=== PATIENT | female | born 1965 | race Caucasian/White ===

== ENCOUNTER 2021-07-08 13:26 | Emergency (ER) | payer OTHER ==
[2021-07-08 16:16] LABS: Absolute Lymphocytes (CBC) 2.4 K/uL (0.7-4.9); Hematocrit 39.7 % (36.0-45.0); Lymphocytes % 23.1 % (15.3-44.8); MPV 7.4 fL (7.6-11.3); RBC Red Blood Cell Count 4.29 M/uL (3.86-4.86)
[2021-07-08 16:17] LABS: Protime INR 1.09
[2021-07-08 16:49] LABS: Albumin 3.7 g/dL (3.4-5.0); Bilirubin Direct 0.2 mg/dL (0-0.2); Bilirubin Total 0.5 mg/dL (0.2-1.0); Magnesium 2.2 mg/dL (1.8-2.4); Potassium 3.6 mmol/L (3.5-5.1); Protein, Total 8.2 g/dL (6.4-8.2)
--- NOTE | 2021-07-08 17:08 | RAD REPORT ---
EXAM DESCRIPTION: CT - Head Brain Wo Cont - 07/08/2021 4:55 pm CLINICAL HISTORY: ams, slurred speech COMPARISON: CT-STROKE BRAIN W/O CONTRAST dated 11/15/2013; Chest Single View dated 07/08/2021 TECHNIQUE: Axial 5 mm thick images of the head were obtained without IV contrast. All CT scans are performed using dose optimization technique as appropriate and may include automated exposure control or mA/KV adjustment according to patient size. FINDINGS: No intracranial hemorrhage, mass, edema or shift of mid-line structures. Volume loss prese nt. These are mild left greater than expected in a patient this age. Ventricles are in proportion. Ap proximately 2.5 cm wedge-shaped area diminished attenuation is present in the right parietal lobe inv olving cortical tissue. There is a larger 5 centimeter more heterogeneous area diminished attenuation at the left frontal parietal junction. Areas of cortical thinning are present. Both areas are probab ly old infarctions. Areas of acute nonhemorrhagic infarction along the boundaries of these areas of t his anemic insult cannot be excluded. The brainstem, thalamus and basal ganglia tissues appear spared any significant attenuation abnormality. No abnormal extra-axial fluid collections. Mastoid air cells and visualized portions of the paranasal sinuses are clear. No acute bony findings. IMPRESSION: No intracranial hemorrhage is present no mass or edema seen. Areas of diminished attenuation in the left frontoparietal lobe and right parietal lobe are probably old areas of ischemic insult. Adjacent areas of acute nonhemorrhagic CVA cannot be excluded. Follow-up MRI imaging would be suggested if tolerable by the patient for more sensitive assessment of possible nonhemorrhagic CVA.
--- NOTE | 2021-07-08 17:40 | RAD REPORT ---
EXAM DESCRIPTION: RAD - Chest Single View - 07/08/2021 4:59 pm CLINICAL HISTORY: CHEST PAIN COMPARISON: None available TECHNIQUE: AP portable chest image was obtained 07/08/2021 4:59 pm . FINDINGS: Lungs are clear. Heart and vasculature are normal. No measurable pleural effusion and no p neumothorax. No acute bony abnormality seen. No acute aortic findings suspected. IMPRESSION: No acute cardiopulmonary process.
--- NOTE | 2021-07-08 17:59 | RAD REPORT ---
EXAM DESCRIPTION: MRI - Brain Wo Cont - 07/08/2021 5:46 pm CLINICAL HISTORY: SLURRED SPEECH, abnormal CT head COMPARISON: Head Brain Wo Cont dated 07/08/2021 TECHNIQUE: Sagittal T1-weighted images were obtained along with axial PD, heavily T2-weighted and T2 -FLAIR images. Axial DWI and ADC mapping sequences were also obtained along with coronal heavily T2-w eighted images. FINDINGS: No intracranial hemorrhage, mass or acute infarction. There is no edema or shift of midlin e structures. Areas of ischemic insult in the right parietal lobe and left frontoparietal region seen on the CT study are fully chronic based on the MRI characteristics. Patient has additional chronic i schemic change scattered in the cerebral white matter. Thalamus, basal ganglia and brainstem tissues are spared any chronic ischemic change. Atrophy changes are generally mild. Ventricles are in proport ion to the volume loss. Prieto-matter/white matter junction is preserved. Signal voids are seen as a no rmal finding in the major intracranial vessels. No sella or supra sella abnormality. No globe or orbital content acute finding. Mastoid air cells and paranasal sinuses are clear. IMPRESSION: No acute infarction changes are present. The areas of ischemic insult in the right parietal lobe and left frontoparietal lobe on the CT study are all chronic.
--- NOTE | 2021-07-08 18:59 | ER ---
Nurse's Notes [facility] Name: Rupali Caballero Age: 55 yrs Sex: Female : 1965 Arrival Date: 07/08/2021 Time: 13:27 Bed 6 Private MD: Diagnosis: Person with feared health complaint in whom no diagnosis is made Presentation: 07/08 13:41 Chief complaint: Patient states: "I think I had a stroke on Monday." Pt states on ab2 Monday she was weak and she was having trouble talking. Pt states she could not get her bra on. Pt states some of the symptoms have since resolved. Coronavirus screen: Vaccine status: Patient reports receiving the 2nd dose of the covid vaccine. Client denies travel out of the [place] in the last 14 days. At this time, the client does not indicate any symptoms associated with coronavirus-19. Ebola Screen: Patient negative for fever greater than or equal to 101.5 degrees Fahrenheit, and additional compatible Ebola Virus Disease symptoms Patient denies exposure to infectious person. Patient denies travel to an Ebola-affected area in the 21 days before illness onset. No symptoms or risks identified at this time. Initial Sepsis Screen: Does the patient meet any 2 criteria? No. Patient's initial sepsis screen is negative. Does the patient have a suspected source of infection? No. Patient's initial sepsis screen is negative. Risk Assessment: Do you want to hurt yourself or someone else? Patient reports no desire to harm self or others. Onset of symptoms is unknown. 13:41 Method Of Arrival: Ambulatory ab2 13:41 Acuity: AME 3 ab2 Triage Assessment: 13:46 The onset of the patients symptoms was July 05, 2021 at 09:00. General: Appears in no ab2 apparent distress. comfortable, Behavior is calm, cooperative, appropriate for age. Pain: Complains of pain in back. Neuro: Level of Consciousness is awake, alert, obeys commands, Oriented to person, place, time, situation, Appropriate for age Reports weakness. Cardiovascular: No deficits noted. Denies chest pain, shortness of breath, Patient's skin is warm and dry. Respiratory: Airway is patent Respiratory effort is even, unlabored, Respiratory pattern is regular, symmetrical. GI: No deficits noted. No signs and/or symptoms were reported involving the gastrointestinal system. Abdomen is round non-distended. : No deficits noted. No signs and/or symptoms were reported regarding the genitourinary system. 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 - Social history:: Smoking status: Patient reports the use of cigarette tobacco products, smokes one-half pack cigarettes per day. Screenin:06 Abuse screen: Denies threats or abuse. Nutritional screening: No deficits noted. ap3 Tuberculosis screening: No symptoms or risk factors identified. Fall Risk Fall in past 12 months (25 points). Secondary diagnosis (15 points) impaired mobility, CVA, IV access (20 points). Ambulatory Aid- Crutches/Cane/Walker (15 pts). Gait- Weak (10 pts.). Mental Status- Oriented to own ability (0 pts). Total [place] Fall Scale indicates High Risk Score (45 or more points). Fall prevention measures have been instituted. Side Rails Up X 2 Placed Close to Nursing Station Frequent Obs/Assessments Occuring As available patient and family educated on Fall Prevention Program and Strategies. Assessment: 16:04 General: Appears in no apparent distress. Behavior is cooperative, anxious. Pain: ap3 Complains of pain in back, right leg, right hip. Neuro: Level of Consciousness is awake, alert, obeys commands, Oriented to person, place, time, Speech is slurred, slurred speech is patients baseline with hx of stroke . Cardiovascular: Patient's skin is warm and dry. Respiratory: Airway is patent Respiratory effort is even, unlabored, Respiratory pattern is regular, symmetrical. 18:13 Reassessment: pt is sitting up in bed, eating chips. respirations are even and ap3 unlabored at this time. Bed is locked and in lowest position, with call light within reach. 18:55 Reassessment: Pt appears agitated, yelling at staff, states "I'm ready to go smoke." jl7 ERP notified and to bedside, informed pt of results of MRI and pt verbalized understanding. Requested IV to be remove so she can leave. IV removed, pt ambulated out of ER with walker. Vital Signs: 13:41 BP 131 / 88; Pulse 95; Resp 20; Temp 97.7(TE); Pulse Ox 97% on R/A; Weight 75.3 kg; ab2 Height 5 ft. 1 in. (154.94 cm); Pain 7/10; 18:10 BP 100 / 68; Pulse 87; Pulse Ox 98% on R/A; ap3 13:41 Body Mass Index 31.37 (75.30 kg, 154.94 cm) ab2 ED Course: 13:27 Patient arrived in ED. am2 13:46 Triage completed. ab2 13:47 Arm band placed on right wrist. ab2 15:28 Micki Astudillo, ULYSSES is Primary Nurse. 7 15:33 Sundar South PA is PHCP. [facility] 15:33 Lukas Lombardi MD is Attending Physician. [facility] 16:07 Patient has correct armband on for positive identification. Bed in low position. Call ap3 light in reach. Side rails up X 1. Pulse ox on. NIBP on. Door closed. Noise minimized. 16:56 CT Head Brain wo Cont In Process Unspecified. EDMS 17:01 XRAY Chest (1 view) In Process Unspecified. EDMS 17:46 Brain Wo Cont MRI In Process Unspecified. EDMS 18:55 No provider procedures requiring assistance completed. IV discontinued, intact, jl7 bleeding controlled, No redness/swelling at site. Pressure dressing applied. Administered Medications: No medications were administered Outcome: 18:59 Discharge ordered by . sudheer 19:00 Discharged to home ambulatory. jl7 19:00 Condition: stable 19:00 Discharge instructions given to patient, Instructed on discharge instructions, follow up and referral plans. Demonstrated understanding of instructions, follow-up care, left without signing form 19:22 Patient left the ED. [email or web address] Signatures: Dispatcher [employer] EDSundar Winter PA PA Micki Meyer, RN RN jl7 Kiana Nazario am2 Kiana Lamb, RN RN ap3 Oscar Bonilla2
--- NOTE | 2021-07-08 18:59 | EDPHYS ---
Physician Documentation [facility] Name: Rupali Caballero Age: 55 yrs Sex: Female : 1965 Arrival Date: 07/08/2021 Time: 13:27 Bed 6 Private MD: ED Physician Lukas Lombardi HPI: 07/08 15:35 This 55 yrs old Female presents to ER via Ambulatory with complaints of Slurred Speech, jmm Back Pain. 15:35 This is a 55-year-old female with history of prior CVAs the presents emerged department jmm with complaints of right-sided weakness and difficulty with her speech beginning this past Monday. Patient states that she believes she had a stroke. Patient noticed this while attempting to put on her bra. Patient states that she has had ongoing right-sided weakness secondary to previous stroke. Believes that symptoms may have been exacerbated after she smoked some type of unknown substance this past weekend with a friend of hers. Patient states that her previous stroke she did have cocaine in her system.. 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 - Social history:: Smoking status: Patient reports the use of cigarette tobacco products, smokes one-half pack cigarettes per day. ROS: 15:35 Constitutional: Negative for fever, chills, and weight loss, Cardiovascular: Negative jmm for chest pain, palpitations, and edema, Respiratory: Negative for shortness of breath, cough, wheezing, and pleuritic chest pain. 15:35 Neuro: Positive for speech changes, weakness. 15:35 All other systems are negative. Exam: 15:35 Constitutional: This is a well developed, well nourished patient who is awake, alert, jmm and in no acute distress. Head/Face: atraumatic. Eyes: EOMI, no conjunctival erythema appreciated ENT: Moist Mucus Membranes Neck: Trachea midline, Supple Chest/axilla: Normal chest wall appearance and motion. Cardiovascular: Regular rate and rhythm. No edema appreciated Respiratory: Normal respirations, no respiratory distress appreciated Abdomen/GI: Non distended, soft Back: Normal ROM Skin: General appearance color normal 15:35 Musculoskeletal/extremity: ROM: intact in all extremities. 15:35 Skin: Appearance: Color: normal in color. 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 15:35 Psych: Behavior/mood is pleasant, cooperative. Vital Signs: 13:41 BP 131 / 88; Pulse 95; Resp 20; Temp 97.7(TE); Pulse Ox 97% on R/A; Weight 75.3 kg; ab2 Height 5 ft. 1 in. (154.94 cm); Pain 7/10; 18:10 BP 100 / 68; Pulse 87; Pulse Ox 98% on R/A; ap3 13:41 Body Mass Index 31.37 (75.30 kg, 154.94 cm) ab2 MDM: 15:56 Patient medically screened. [facility] 18:58 Data reviewed: vital signs, nurses notes. Counseling: I had a detailed discussion with sudheer the patient and/or guardian regarding: the historical points, exam findings, and any diagnostic results supporting the discharge/admit diagnosis, lab results, radiology results, the need for outpatient follow up, to return to the emergency department if symptoms worsen or persist or if there are any questions or concerns that arise at home. 07/08 15:34 Order name: Basic Metabolic Panel; Complete Time: 19:16 [facility] 07/08 15:34 Order name: CBC with Diff; Complete Time: 16:23 [facility] 07/08 15:34 Order name: LFT's; Complete Time: 19:16 [facility] 07/08 15:34 Order name: Magnesium; Complete Time: 19:16 [facility] 07/08 15:34 Order name: NT PRO-BNP; Complete Time: 19:16 [facility] 07/08 15:34 Order name: PT-INR; Complete Time: 16:23 [facility] 07/08 15:34 Order name: Troponin HS; Complete Time: 19:16 [facility] 07/08 15:34 Order name: XRAY Chest (1 view); Complete Time: 17:47 [facility] 07/08 15:34 Order name: EKG; Complete Time: 15:35 [facility] 07/08 15:34 Order name: Cardiac monitoring; Complete Time: 16:03 [facility] 07/08 15:34 Order name: EKG - Nurse/Tech; Complete Time: 16:03 [facility] 07/08 16:23 Order name: CT Head Brain wo Cont; Complete Time: 17:37 [facility] 07/08 16:23 Order name: Brain Wo Cont MRI; Complete Time: 18:02 [facility] 07/08 15:34 Order name: IV Saline Lock; Complete Time: 16:03 [facility] 07/08 15:34 Order name: Labs collected and sent; Complete Time: 16:04 [facility] 07/08 15:34 Order name: O2 Per Protocol; Complete Time: 16:04 [facility] 07/08 15:34 Order name: O2 Sat Monitoring; Complete Time: 16:04 [facility] Administered Medications: No medications were administered Disposition: 19:17 Co-signature as Attending Physician, Lukas Lombardi MD I agree with the assessment and kdr plan of care. Disposition Summary: 07/08/21 18:59 Discharge Ordered Location: Home [facility] Condition: Stable [facility] Diagnosis - Person with feared health complaint in whom no diagnosis is made [facility] Followup: [facility] - With: Private Physician - When: 2 - 3 days - Reason: Recheck today's complaints, Continuance of care, Re-evaluation by your physician Forms: - Medication Reconciliation Form [facility] - Thank You Letter [facility] - Antibiotic Education [facility] - Prescription Opioid Use [facility] Signatures: Dispatcher [employer] Lukas Rose MD MD kdr Mickail, Joel, PA PA jmm Bleininger, Alexis ab2
[2021-07-08 19:12] LABS: Troponin High Sensitivity 4.3 pg/mL (<58.9)
[2021-07-08 22:43] VITALS: TEMP 97.7
[2021-07-08 22:44] VITALS: BP 100/68; O2SAT 98
--- NOTE | 2021-07-09 07:47 | EKG ---
Test Date: 2021-07-08 Test Time: 15:56:52 Flap Maker: ALP MEASUREMENT RESULTS: Intervals: Rate: 82 IN: 124 QRSD: 82 QT: 370 QTc: 432 [place]: P: 71 IN: 124 QRS: 53 T: 53 INTERPRETIVE STATEMENTS: Normal sinus rhythm Low voltage QRS Borderline ECG Compared to ECG 11/15/2013 19:32:16 Low QRS voltage now present Myocardial infarct finding no longer present Electronically Signed On 07-09-21 07:45:58 CDT by Esteban Castro
== END 2021-07-08 19:22 | disposition home or self-care (01) ==
LOC: ER 13:26
DX: Z71.1 Person with feared health complaint in whom no diagnosis is made (principal); F17.210 Nicotine dependence, cigarettes, uncomplicated; Z86.73 Personal history of transient ischemic attack (TIA), and cerebral infarction without residual deficits
CPT/HCPCS: 36415; 70450; 70551; 71045; 80048; 80076; 83735; 83880; 84484; 85025; 85610; 93005; 99283